=== PATIENT | female | born 1955 | race Caucasian/White ===

== ENCOUNTER 2018-01-23 07:50 | Outpatient (CLI) | payer BC, OTHER ==
[2018-01-23 08:31] LABS: BASOPHILS # (AUTO) 0.1 X10'3 (0-0.2); BASOPHILS % (AUTO) 1.1 % (0-1); EOSINOPHILS # (AUTO) 0.7 X10'3 (0-0.9); EOSINOPHILS % (AUTO) 5.4 % (0-6); HEMATOCRIT 41.7 % (35.0-45.0); HEMOGLOBIN 14.2 g/dl (12.0-16.0); LYMPHOCYTES # (AUTO) 1.9 X10'3 (1.1-4.8); LYMPHOCYTES % (AUTO) 14.2 % (21-51); MEAN CORPUSCULAR HEMOGLOBIN 31.6 PG (27.0-31.0); MEAN CORPUSCULAR VOLUME 92.9 FL (78-98); MEAN PLATELET VOLUME 7.9 FL (7.4-10.4); MONOCYTES # (AUTO) 0.6 X10'3 (0-0.9); MONOCYTES % (AUTO) 4.3 % (2-12); NEUTROPHILS # (AUTO) 9.8 X10'3 (1.8-7.7); PLATELET COUNT 387 X10'3 (140-440); RED BLOOD COUNT 4.49 X10'6 (4.20-5.60); RED CELL DISTRIBUTION WIDTH 13.7 % (11.5-14.5); WHITE BLOOD COUNT 13.1 X10'3 (4.5-11.0)
[2018-01-23 08:40] LABS: CLARITY,URINE SLIGHTLY CLOUDY (Clear); COLOR,URINE YELLOW (Yellow); GLUCOSE, URINE NEGATIVE (Neg); KETONES,URINE NEGATIVE (Neg); LEUKOCYTE ESTERASE ,URINE SMALL (Neg); NITRITES, URINE POSITIVE (Neg); OCCULT BLOOD,URINE TRACE-LYSED (Neg); PROTEIN,URINE NEGATIVE (Neg); UROBILINOGEN,URINE 0.2 E.U/dL (0.2-1.0)
[2018-01-23 08:46] LABS: UA COLLECTION TYPE CLN CATCH MIDSTREAM
[2018-01-23 08:48] LABS: BACTERIA,URINE 3+ /HPF (Neg); MUCUS STRANDS FEW /LPF (Neg); RBC,URINE 0-2 /HPF (0-2); SQUAMOUS EPITHELIAL CELL,UR FEW /LPF (FEW); TRANSITIONAL EPI CELLS,URINE FEW /HPF
[2018-01-23 09:01] LABS: ALANINE AMINOTRANSFERASE 93 U/L (12-78); ALBUMIN 3.5 G/DL (3.4-5.0); ALBUMIN/GLOBULIN RATIO 0.8 (1.1-1.5); ALKALINE PHOSPHATASE 243 IU/L (46-116); ANION GAP 6 (8-16); ASPARTATE AMINO TRANSFERASE 47 U/L (10-37); BILIRUBIN,TOTAL 0.5 MG/DL (0.1-1.0); BLOOD UREA NITROGEN 16 MG/DL (7-18); BUN/CREATININE RATIO 17.4 (6.6-38.0); CALCIUM 9.1 MG/DL (8.5-10.1); CHLORIDE 104 MMOL/L (99-107); CHOL/HDL RATIO 3.8 (0.00-4.99); CHOLESTEROL 255 MG/DL (0-200); CREATININE 0.92 MG/DL (0.40-0.90); GLUCOSE 92 MG/DL (70-104); HDL CHOLESTEROL 67 MG/DL (35-60); LDL CHOLESTEROL 170 MG/DL (50-100); POTASSIUM 4.4 MMOL/L (3.5-5.1); SODIUM 140 MMOL/L (135-145); TOTAL CARBON DIOXIDE 30.1 MMOL/L (24-32); TOTAL PROTEIN 7.7 G/DL (6.4-8.2); TRIGLYCERIDES 68 MG/DL (20-135); eGFR 61 ML/MIN
== END 2018-01-23 23:59 | disposition home or self-care (01) ==
LOC: CARD DIAG 07:50
PROVIDERS: ATTEND Family Medicine
DX: I08.3 Combined rheumatic disorders of mitral, aortic and tricuspid valves (principal); R91.8 Other nonspecific abnormal finding of lung field; I48.91 Unspecified atrial fibrillation; R53.83 Other fatigue; R00.1 Bradycardia, unspecified
CPT/HCPCS: 36415; 71046; 80053; 80061; 81001; 84439; 84443; 85025; 93306

== ENCOUNTER 2018-02-19 08:05 | Outpatient (CLI) | payer BC ==
[~2018-02-19] VITALS: Ht 170.2 cm; Wt 56.0 kg
[2018-02-19] VITALS (7 sets, daily range): BP systolic 114–136; BP diastolic 60–73
[2018-02-19] MEDS ORDERED: ASPI-611 PO (08:51)
[2018-02-19] MEDS ORDERED: regadenoson 0.4mg/5ml syringe IV ONE ×2 (08:55→09:47)
[2018-02-19] MEDS ORDERED: CAFFEINE CITRATE 60 MG/3 ML injection vial IV ONE ×2 (08:55→09:47)
[2018-02-19] MEDS ORDERED: metoprolol tartrate 1mg/ml inj IV PRN (08:55)
[2018-02-19] MEDS ORDERED: nitroGLYCERIN 0.4mg SUBLingual tab SL PRN (08:55)
[2018-02-19] MEDS ORDERED: normal saline 500ml IV soln 500 ML IV ONE (08:55)
== END 2018-02-19 23:59 | disposition home or self-care (01) ==
LOC: RAD 08:05
PROVIDERS: ATTEND Internal Medicine Interventional Cardiology
DX: I48.91 Unspecified atrial fibrillation (principal)
CPT/HCPCS: 78452; 93017; A9500

== ENCOUNTER 2018-10-24 08:48 | Outpatient (CLI) | payer BC ==
[~2018-10-24] VITALS: Ht 170.2 cm; Wt 56.7 kg
[~2018-10-24 08:48] MED LIST: ASPI-611 PO
[2018-10-24] MEDS ORDERED: albuterol 2.5 MG/3 ML nebule ONE (09:27)
[2018-10-24] MEDS ORDERED: albuterol 2.5 MG/3 ML nebule NEB ONE (09:40)
== END 2018-10-24 23:59 | disposition home or self-care (01) ==
LOC: RT 08:48
PROVIDERS: ATTEND Family Medicine
DX: R06.02 Shortness of breath (principal); R94.2 Abnormal results of pulmonary function studies
CPT/HCPCS: 94060; 94727; 94729; 94760

== ENCOUNTER 2019-08-07 07:08 | Outpatient (CLI) | payer OTHER, MEDICARE ==
[~2019-08-07] VITALS: Ht 170.2 cm; Wt 53.5 kg
[2019-08-07 07:46] LABS: TOTAL HEMOGLOBIN 13.9 G/dl (12.0-16.0)
[2019-08-07] MEDS ORDERED: albuterol 2.5 MG/3 ML nebule NEB ONE (08:10)
== END 2019-08-07 23:59 | disposition home or self-care (01) ==
LOC: RT 07:08
PROVIDERS: ATTEND Physician Assistant
DX: J84.89 Other specified interstitial pulmonary diseases (principal)
CPT/HCPCS: 85018; 94060; 94727; 94729; 94760

== ENCOUNTER 2020-02-11 08:54 | Outpatient (CLI) | payer BC, MEDICARE ==
[2020-02-11 09:32] LABS: BASOPHILS # (AUTO) 0.1 X10'3 (0-0.2); BASOPHILS % (AUTO) 1.1 % (0-1); EOSINOPHILS # (AUTO) 0.8 X10'3 (0-0.9); EOSINOPHILS % (AUTO) 6.4 % (0-6); HEMATOCRIT 43.4 % (35.0-45.0); HEMOGLOBIN 14.5 g/dl (12.0-16.0); LYMPHOCYTES # (AUTO) 2.3 X10'3 (1.1-4.8); LYMPHOCYTES % (AUTO) 17.8 % (21-51); MEAN CORPUSCULAR HEMOGLOBIN 31.5 PG (27.0-31.0); MEAN CORPUSCULAR HGB CONC 33.5 g/dL (33.0-36.5); MEAN CORPUSCULAR VOLUME 94.2 FL (78-98); MEAN PLATELET VOLUME 7.7 FL (7.4-10.4); MONOCYTES # (AUTO) 0.8 X10'3 (0-0.9); MONOCYTES % (AUTO) 6.2 % (2-12); NEUTROPHILS # (AUTO) 8.8 X10'3 (1.8-7.7); NEUTROPHILS % (AUTO) 68.5 % (42-75); PLATELET COUNT 414 X10'3 (140-440); RED CELL DISTRIBUTION WIDTH 13.1 % (11.5-14.5); WHITE BLOOD COUNT 12.9 X10'3 (4.5-11.0)
[2020-02-11 09:32] LABS: CLARITY,URINE CLEAR (Clear); COLOR,URINE YELLOW (Yellow); GLUCOSE, URINE NEGATIVE (Neg); KETONES,URINE NEGATIVE (Neg); LEUKOCYTE ESTERASE ,URINE NEGATIVE (Neg); NITRITES, URINE NEGATIVE (Neg); OCCULT BLOOD,URINE TRACE-INTACT (Neg); PH,URINE 5.5 (4.8-8.0); PROTEIN,URINE NEGATIVE (Neg); UROBILINOGEN,URINE 0.2 E.U/dL (0.2-1.0)
[2020-02-11 09:44] LABS: UA COLLECTION TYPE CLN CATCH MIDSTREAM
[2020-02-11 09:51] LABS: CELLULAR CAST 0-4 /LPF (NEGATIVE); MUCUS STRANDS MODERATE /LPF (Neg); SQUAMOUS EPITHELIAL CELL,UR FEW /LPF (FEW)
[2020-02-11 09:52] LABS: BACTERIA,URINE FEW /HPF (Neg); COARSE GRANULAR CAST 0-3 /LPF (NEGATIVE); RBC,URINE 0-2 /HPF (0-2); WBC,URINE 0-4 /HPF (0-4)
[2020-02-11 09:53] LABS: TRANSITIONAL EPI CELLS,URINE FEW /HPF
[2020-02-11 09:59] LABS: ALANINE AMINOTRANSFERASE 29 U/L (12-78); ALBUMIN 3.8 G/DL (3.4-5.0); ALBUMIN/GLOBULIN RATIO 0.8 (1.1-1.5); ALKALINE PHOSPHATASE 154 IU/L (46-116); ANION GAP 6 (8-16); ASPARTATE AMINO TRANSFERASE 29 U/L (10-37); BILIRUBIN,TOTAL 0.4 MG/DL (0.1-1.0); BLOOD UREA NITROGEN 18 MG/DL (7-18); CALCIUM 9.3 MG/DL (8.5-10.1); CHLORIDE 102 MMOL/L (99-107); CHOL/HDL RATIO 4.2 (0.00-4.99); CHOLESTEROL 280 MG/DL (0-200); CREATININE 0.82 MG/DL (0.40-0.90); GLUCOSE 91 MG/DL (70-104); HDL CHOLESTEROL 67 MG/DL (35-60); LDL CHOLESTEROL 196 MG/DL (50-100); SODIUM 139 MMOL/L (135-145); TOTAL CARBON DIOXIDE 31.1 MMOL/L (24-32); TOTAL PROTEIN 8.5 G/DL (6.4-8.2); TRIGLYCERIDES 76 MG/DL (20-135); eGFR 70 ML/MIN
== END 2020-02-11 23:59 | disposition home or self-care (01) ==
LOC: LAB 08:54
PROVIDERS: ATTEND Family Medicine
DX: Z00.00 Encounter for general adult medical examination without abnormal findings (principal)
CPT/HCPCS: 36415; 80053; 80061; 81001; 84439; 84443; 85025

== ENCOUNTER 2020-03-09 08:01 | Outpatient (CLI) | payer BC, MEDICARE ==
[~2020-03-09] VITALS: Ht 165.1 cm; Wt 53.0 kg
[2020-03-09] VITALS (7 sets, daily range): BP systolic 118–141; BP diastolic 64–85
[2020-03-09] MEDS ORDERED: regadenoson 0.4mg/5ml syringe IV ONE (09:10)
[2020-03-09] MEDS ORDERED: metoprolol tartrate 1mg/ml inj IV PRN (09:10)
[2020-03-09] MEDS ORDERED: aminophylline 250mg/10ml inj. IV PRN (09:10)
[2020-03-09] MEDS ORDERED: nitroGLYCERIN 0.4mg SUBLingual tab SL PRN (09:10)
== END 2020-03-09 23:59 | disposition home or self-care (01) ==
LOC: RAD 08:01
PROVIDERS: ATTEND Internal Medicine Interventional Cardiology
DX: I08.3 Combined rheumatic disorders of mitral, aortic and tricuspid valves (principal); I48.0 Paroxysmal atrial fibrillation
CPT/HCPCS: 78452; 93017; 93306; A9500; J0280; J2785

== ENCOUNTER 2020-06-03 15:22 | Outpatient (CLI) | payer BC, MEDICARE ==
[2020-06-03 16:42] LABS: ALANINE AMINOTRANSFERASE 62 U/L (12-78); ALBUMIN 3.6 G/DL (3.4-5.0); ALBUMIN/GLOBULIN RATIO 0.7 (1.1-1.5); ASPARTATE AMINO TRANSFERASE 49 U/L (10-37); BILIRUBIN,DIRECT 0.1 MG/DL (0-0.3); BILIRUBIN,TOTAL 0.4 MG/DL (0.1-1.0); TOTAL PROTEIN 8.8 G/DL (6.4-8.2)
[2020-06-03 17:03] LABS: ALKALINE PHOSPHATASE 232 IU/L (46-116)
== END 2020-06-03 23:59 | disposition home or self-care (01) ==
LOC: RT 15:22
PROVIDERS: ATTEND Internal Medicine Critical Care Medicine
DX: J84.9 Interstitial pulmonary disease, unspecified (principal); Z79.899 Other long term (current) drug therapy
CPT/HCPCS: 36415; 80076

== ENCOUNTER 2020-07-06 06:07 | Outpatient (CLI) | payer BC, MEDICARE | END 2020-07-06 23:59 | disposition home or self-care (01) | LOC: RT 06:07 | PROVIDERS: ATTEND Internal Medicine | DX: J84.89 Other specified interstitial pulmonary diseases (principal) | CPT/HCPCS: 94618 ==

== ENCOUNTER 2020-07-15 07:02 | Outpatient (CLI) | payer BC, MEDICARE | END 2020-07-15 23:59 | disposition home or self-care (01) | LOC: RAD 07:02 | PROVIDERS: ATTEND Internal Medicine Rheumatology | DX: R74.8 Abnormal levels of other serum enzymes (principal) | CPT/HCPCS: 76700 ==

== ENCOUNTER 2020-07-23 12:34 | Outpatient (CLI) | payer BC, MEDICARE ==
[2020-07-23 13:06] LABS: BASOPHILS # (AUTO) 0.1 X10'3 (0-0.2); BASOPHILS % (AUTO) 0.8 % (0-1); EOSINOPHILS # (AUTO) 0.6 X10'3 (0-0.9); EOSINOPHILS % (AUTO) 3.9 % (0-6); HEMATOCRIT 42.1 % (35.0-45.0); LYMPHOCYTES # (AUTO) 2.4 X10'3 (1.1-4.8); LYMPHOCYTES % (AUTO) 16.2 % (21-51); MEAN CORPUSCULAR HEMOGLOBIN 31.8 PG (27.0-31.0); MEAN CORPUSCULAR HGB CONC 33.3 g/dL (33.0-36.5); MEAN CORPUSCULAR VOLUME 95.6 FL (78-98); MEAN PLATELET VOLUME 8.1 FL (7.4-10.4); MONOCYTES # (AUTO) 0.8 X10'3 (0-0.9); MONOCYTES % (AUTO) 5.8 % (2-12); NEUTROPHILS # (AUTO) 10.8 X10'3 (1.8-7.7); NEUTROPHILS % (AUTO) 73.3 % (42-75); PLATELET COUNT 409 X10'3 (140-440); RED BLOOD COUNT 4.41 X10'6 (4.20-5.60); RED CELL DISTRIBUTION WIDTH 13.5 % (11.5-14.5); WHITE BLOOD COUNT 14.7 X10'3 (4.5-11.0)
[2020-07-23 13:17] LABS: PARTIAL THROMBOPLASTIN TIME 26 SECONDS (22-32)
[2020-07-23 13:20] LABS: ALBUMIN 3.7 G/DL (3.4-5.0); ANION GAP 8 (8-16); BLOOD UREA NITROGEN 17 MG/DL (7-18); BUN/CREATININE RATIO 21.5 (6.6-38.0); CALCIUM 9.4 MG/DL (8.5-10.1); CHLORIDE 104 MMOL/L (99-107); CREATININE 0.79 MG/DL (0.40-0.90); GLUCOSE 95 MG/DL (70-104); POTASSIUM 4.3 MMOL/L (3.5-5.1); SODIUM 141 MMOL/L (135-145); eGFR 73 ML/MIN
== END 2020-07-23 23:59 | disposition home or self-care (01) ==
LOC: LAB 12:34
PROVIDERS: ATTEND Internal Medicine Interventional Cardiology
DX: I48.0 Paroxysmal atrial fibrillation (principal); R06.89 Other abnormalities of breathing
CPT/HCPCS: 36415; 80048; 85025; 85610; 85730

== ENCOUNTER 2020-07-28 12:11 | Day surgery (SDC) | payer MEDICARE ==
[~2020-07-28] VITALS: Ht 167.6 cm; Wt 49.9 kg
[2020-07-28] VITALS (7 sets, daily range): BP systolic 97–135; BP diastolic 59–83
[2020-07-28] MEDS ORDERED: LIDOcaine/PRILOcaine 5gm cream TP ONE (12:40)
[2020-07-28] MEDS ORDERED: LORazepam 0.5 MG tablet PO PRN (12:45)
[2020-07-28] MEDS ORDERED: diphenhydrAMINE 25mg capsule PO PRN (12:45)
[2020-07-28] MEDS ORDERED: normal saline 1,000 ML IV SCH (12:45)
[2020-07-28] MEDS ORDERED: METO-395 PO (12:46)
[2020-07-28] MEDS ORDERED: ALEN70TA80 PO (12:46)
[2020-07-28] MEDS ORDERED: FLEC50TA3 PO (12:46)
[2020-07-28] MEDS ORDERED: ALBU2.5V10 INH (12:46)
[2020-07-28] MEDS ORDERED: midazolam 1 mg/ML 2ml injection ONE (13:30)
[2020-07-28] MEDS ORDERED: iohexol 350MG/ML 100ml bottle IV ONE (13:30)
[2020-07-28] MEDS ORDERED: heparin 1,000 UNITS/NS 500ml 500 ML ONE ×2 (13:30)
[2020-07-28] MEDS ORDERED: fentaNYL/PF 50MCG/1 ML 2ML syringe ONE (13:30)
[2020-07-28] MEDS ORDERED: LIDOcaine 1% (10mg/ml)w/preservative injection 20ml MDV ONE (13:30)
[2020-07-28] MEDS ORDERED: nitroGLYCERIN 0.4mg SUBLingual tab SL PRN (15:15)
[2020-07-28] MEDS ORDERED: OXAZEpam 15mg capsule PO PRN (15:15)
[2020-07-28] MEDS ORDERED: proCHLORperazine 10 MG/2 ml inj IV PRN (15:15)
[2020-07-28] MEDS ORDERED: ondansetron/PF 4mg/2ml inj IV PRN (15:15)
== END 2020-07-28 16:30 | disposition home or self-care (01) ==
LOC: SSTAY O 12:11
PROVIDERS: ATTEND Internal Medicine Interventional Cardiology
DX: I27.23 Pulmonary hypertension due to lung diseases and hypoxia (principal); I48.91 Unspecified atrial fibrillation; E78.5 Hyperlipidemia, unspecified; Z79.899 Other long term (current) drug therapy; Z79.82 Long term (current) use of aspirin
CPT/HCPCS: 93005; 93451; 99152; 99153; J1644; J2001; J2250; J3010; Q9967; C1751

== ENCOUNTER 2020-08-05 07:02 | Outpatient (CLI) | payer BC, MEDICARE ==
[~2020-08-05] VITALS: Ht 170.2 cm; Wt 49.9 kg
[~2020-08-05 07:02] MED LIST changes: +ALBU2.5V10 INH; +ALEN70TA80 PO; +FLEC50TA3 PO; +METO-395 PO
[2020-08-05] MEDS ORDERED: albuterol 2.5 MG/3 ML nebule NEB PRN (07:40)
== END 2020-08-05 23:59 | disposition home or self-care (01) ==
LOC: RT 07:02
PROVIDERS: ATTEND Internal Medicine Critical Care Medicine
DX: J84.89 Other specified interstitial pulmonary diseases (principal); R94.2 Abnormal results of pulmonary function studies
CPT/HCPCS: 94060; 94727; 94729; 94760

== ENCOUNTER 2020-09-04 10:32 | Outpatient (CLI) | payer MEDICARE ==
[2020-09-04 11:34] LABS: BASOPHILS % (AUTO) 0.3 % (0-1); EOSINOPHILS % (AUTO) 0.2 % (0-6); HEMATOCRIT 44.1 % (35.0-45.0); HEMOGLOBIN 14.4 g/dl (12.0-16.0); LYMPHOCYTES # (AUTO) 0.9 X10'3 (1.1-4.8); LYMPHOCYTES % (AUTO) 6.2 % (21-51); MEAN CORPUSCULAR HEMOGLOBIN 31.5 PG (27.0-31.0); MEAN CORPUSCULAR HGB CONC 32.7 g/dL (33.0-36.5); MEAN CORPUSCULAR VOLUME 96.5 FL (78-98); MEAN PLATELET VOLUME 7.8 FL (7.4-10.4); MONOCYTES # (AUTO) 0.2 X10'3 (0-0.9); MONOCYTES % (AUTO) 1.3 % (2-12); PLATELET COUNT 385 X10'3 (140-440); RED BLOOD COUNT 4.57 X10'6 (4.20-5.60); RED CELL DISTRIBUTION WIDTH 13.7 % (11.5-14.5); WHITE BLOOD COUNT 15.2 X10'3 (4.5-11.0)
[2020-09-04 11:54] LABS: ALANINE AMINOTRANSFERASE 35 U/L (12-78); ALBUMIN 3.5 G/DL (3.4-5.0); ALBUMIN/GLOBULIN RATIO 0.9 (1.1-1.5); ALKALINE PHOSPHATASE 126 IU/L (46-116); ASPARTATE AMINO TRANSFERASE 40 U/L (10-37); BILIRUBIN,DIRECT 0.2 MG/DL (0-0.3); BILIRUBIN,TOTAL 0.6 MG/DL (0.1-1.0); TOTAL PROTEIN 7.4 G/DL (6.4-8.2)
== END 2020-09-04 23:59 | disposition home or self-care (01) ==
LOC: LAB 10:32
PROVIDERS: ATTEND Internal Medicine
DX: Z79.899 Other long term (current) drug therapy (principal)
CPT/HCPCS: 36415; 80076; 85025

== ENCOUNTER → 2020-10-05 | Outpatient (CLI) | payer MEDICARE ==
[2020-10-05 11:09] LABS: HEMATOCRIT 44.4 % (35.0-45.0); HEMOGLOBIN 14.6 g/dl (12.0-16.0); MEAN CORPUSCULAR HEMOGLOBIN 32.6 PG (27.0-31.0); MEAN PLATELET VOLUME 7.9 FL (7.4-10.4); PLATELET COUNT 400 X10'3 (140-440); RED BLOOD COUNT 4.49 X10'6 (4.20-5.60); RED CELL DISTRIBUTION WIDTH 14.7 % (11.5-14.5); WHITE BLOOD COUNT 15.9 X10'3 (4.5-11.0)
[2020-10-05 11:26] LABS: ALANINE AMINOTRANSFERASE 47 U/L (12-78); ALBUMIN 3.4 G/DL (3.4-5.0); ALBUMIN/GLOBULIN RATIO 0.9 (1.1-1.5); ALKALINE PHOSPHATASE 175 IU/L (46-116); ASPARTATE AMINO TRANSFERASE 95 U/L (10-37); BILIRUBIN,DIRECT 0.3 MG/DL (0-0.3); BILIRUBIN,TOTAL 0.7 MG/DL (0.1-1.0); TOTAL PROTEIN 7.3 G/DL (6.4-8.2)
== END | disposition home or self-care (01) ==
LOC: LAB 10:14
PROVIDERS: ATTEND Internal Medicine
DX: Z79.899 Other long term (current) drug therapy (principal)
CPT/HCPCS: 36415; 80076; 85027

== ENCOUNTER 2020-10-20 08:41 | Outpatient (CLI) | payer MEDICARE | END 2020-10-20 23:59 | disposition home or self-care (01) | LOC: RAD 08:41 | PROVIDERS: ATTEND Anesthesiology Pain Medicine | DX: M51.36 Other intervertebral disc degeneration, lumbar region (principal); M48.07 Spinal stenosis, lumbosacral region; M43.16 Spondylolisthesis, lumbar region | CPT/HCPCS: 72148 ==

== ENCOUNTER 2020-11-17 08:16 | Emergency (ER) | payer MEDICARE ==
[~2020-11-17] VITALS: Ht 165.1 cm; Wt 50.0 kg
[2020-11-17 08:19] VITALS: BP 136/72
--- NOTE | 2020-11-17 10:40 | NUR ---
PT HAS RETURNED FROM ULTRASOUND
[2020-11-17] MEDS ORDERED: SULF1TAB49 PO (11:53)
== END 2020-11-17 12:02 | disposition home or self-care (01) ==
LOC: ER 08:17
DX: J18.9 Pneumonia, unspecified organism (principal); J84.10 Pulmonary fibrosis, unspecified; R09.02 Hypoxemia
CPT/HCPCS: 71046; 93306; 99283

== ENCOUNTER 2020-11-20 09:57 | Outpatient (CLI) | payer MEDICARE ==
[~2020-11-20 09:57] MED LIST changes: +SULF1TAB49 PO
[2020-11-20] MEDS ORDERED: iohexol 350MG/ML 100ml bottle IV ONE (13:18)
== END 2020-11-20 23:59 | disposition home or self-care (01) ==
LOC: 64 CT 09:57
PROVIDERS: ATTEND Internal Medicine Pulmonary Disease
DX: J84.112 Idiopathic pulmonary fibrosis (principal); J47.9 Bronchiectasis, uncomplicated; J98.4 Other disorders of lung
CPT/HCPCS: 71275; Q9967

== ENCOUNTER 2021-01-07 10:45 | Day surgery (SDC) | payer MEDICARE ==
[~2021-01-07] VITALS: Ht 165.1 cm; Wt 49.5 kg
[~2021-01-07 10:45] MED LIST changes: -SULF1TAB49 PO
[2021-01-07] MEDS ORDERED: MIDAZolam 1 MG/ML 5ML VIAL ONE (11:05)
[2021-01-07] MEDS ORDERED: fentaNYL/PF 50MCG/1 ML 2ML syringe ONE (11:05)
[2021-01-07 11:15] VITALS: BP 112/48
[2021-01-07] MEDS ORDERED: NINT150C (11:30)
[2021-01-07] MEDS ORDERED: MYCO500T PO (11:31)
[2021-01-07] MEDS ORDERED: LACT1CAP65 PO (11:32)
[2021-01-07] MEDS ORDERED: CARB1TAB23 PO (11:33)
[2021-01-07] MEDS ORDERED: PRED5TAB49 PO (11:33)
[2021-01-07] MEDS ORDERED: SULF1TAB49 PO (11:34)
[2021-01-07] MEDS ORDERED: CHOL20004 PO (11:35)
[2021-01-07] MEDS ORDERED: MELA2.5T PO (11:36)
[2021-01-07] MEDS ORDERED: OMEG1CAP13 PO (11:36)
[2021-01-07] MEDS ORDERED: DIPH25CA83 PO (11:37)
[2021-01-07 13:10] VITALS: BP 105/66
[2021-01-07 13:20] VITALS: BP 98/51
[2021-01-07 13:30] VITALS: BP 98/59
[2021-01-07 13:40] VITALS: BP 110/70
== END 2021-01-07 14:05 | disposition home or self-care (01) ==
LOC: GI LAB 10:45
PROVIDERS: ATTEND Internal Medicine Gastroenterology
DX: Z12.11 Encounter for screening for malignant neoplasm of colon (principal); K63.89 Other specified diseases of intestine; K64.8 Other hemorrhoids; I48.91 Unspecified atrial fibrillation; Z79.899 Other long term (current) drug therapy
CPT/HCPCS: G0121; G0500; J2250; J3010; J7040; Z7512; 45378; 99152; A4620

== ENCOUNTER → 2021-03-06 | Outpatient (CLI) | payer MEDICARE ==
[~2021-03-06] MED LIST changes: -ALBU2.5V10 INH; -ASPI-611 PO; +CARB1TAB23 PO; +CHOL20004 PO; +DIPH25CA83 PO; +LACT1CAP65 PO; +MELA2.5T PO; +MYCO500T PO; +NINT150C; +OMEG1CAP13 PO; +PRED5TAB49 PO; +SULF1TAB49 PO
== END | disposition home or self-care (01) ==
LOC: LAB 08:19
PROVIDERS: ATTEND Family Medicine
DX: Z01.818 Encounter for other preprocedural examination (principal); Z20.822 Contact with and (suspected) exposure to COVID-19
CPT/HCPCS: 36415; U0003

== ENCOUNTER 2021-03-15 08:50 | Outpatient (CLI) | payer MEDICARE | END 2021-03-15 23:59 | disposition home or self-care (01) | LOC: PRE-OP 08:50 | PROVIDERS: ATTEND Family Medicine | DX: Z20.822 Contact with and (suspected) exposure to COVID-19 (principal) | CPT/HCPCS: 36415; U0003; U0005 ==

== ENCOUNTER 2021-04-05 09:04 | Emergency (ER) | payer MEDICARE ==
[~2021-04-05] VITALS: Ht 165.1 cm; Wt 49.1 kg
[~2021-04-05 09:04] MED LIST changes: -NINT150C; +NINT150C PO
[2021-04-05] MEDS ORDERED: metoprolol tartrate 1mg/ml inj IV ONE ×2 (10:00)
[2021-04-05 10:19] LABS: BASOPHILS # (AUTO) 0.1 X10'3 (0-0.2); BASOPHILS % (AUTO) 0.3 % (0-1); EOSINOPHILS # (AUTO) 0.1 X10'3 (0-0.9); EOSINOPHILS % (AUTO) 0.3 % (0-6); HEMOGLOBIN 13.1 g/dl (12.0-16.0); LYMPHOCYTES # (AUTO) 0.7 X10'3 (1.1-4.8); LYMPHOCYTES % (AUTO) 3.6 % (21-51); MEAN CORPUSCULAR HEMOGLOBIN 31.9 PG (27.0-31.0); MEAN CORPUSCULAR HGB CONC 32.7 g/dL (33.0-36.5); MEAN CORPUSCULAR VOLUME 97.6 FL (78-98); MONOCYTES # (AUTO) 0.5 X10'3 (0-0.9); MONOCYTES % (AUTO) 2.5 % (2-12); NEUTROPHILS # (AUTO) 18.4 X10'3 (1.8-7.7); NEUTROPHILS % (AUTO) 93.3 % (42-75); PLATELET COUNT 551 X10'3 (140-440); RED CELL DISTRIBUTION WIDTH 14.1 % (11.5-14.5); WHITE BLOOD COUNT 19.7 X10'3 (4.5-11.0)
[2021-04-05 10:23] LABS: PARTIAL THROMBOPLASTIN TIME 25 SECONDS (22-32)
[2021-04-05 10:26] LABS: ALANINE AMINOTRANSFERASE 11 U/L (12-78); ALBUMIN 3.7 G/DL (3.4-5.0); ALBUMIN/GLOBULIN RATIO 0.9 (1.1-1.5); ALKALINE PHOSPHATASE 173 IU/L (46-116); ANION GAP 9 (8-16); ASPARTATE AMINO TRANSFERASE 30 U/L (10-37); BILIRUBIN,TOTAL 0.8 MG/DL (0.1-1.0); BLOOD UREA NITROGEN 21 MG/DL (7-18); BUN/CREATININE RATIO 21.4 (6.6-38.0); CHLORIDE 99 MMOL/L (99-107); CREATININE 0.98 MG/DL (0.40-0.90); GLUCOSE 120 MG/DL (70-104); POTASSIUM 4.8 MMOL/L (3.5-5.1); SODIUM 140 MMOL/L (135-145); TOTAL PROTEIN 7.6 G/DL (6.4-8.2); eGFR 57 ML/MIN
[2021-04-05] MEDS ORDERED: ringers solution, lacted 1,000 ML IV ONE (10:35)
[2021-04-05 10:36] LABS: MAGNESIUM 2.4 MG/DL (1.5-2.4)
[2021-04-05 11:06] LABS: D-DIMER 0.74 MG/L FEU (0-0.50)
--- NOTE | 2021-04-05 11:52 | NUR ---
Dr. Colunga at bedside, aware of VS. MD to contact cardiology
[2021-04-05] MEDS ORDERED: magnesium 2GM in 50ml NS 50 ML IV ONE (12:20)
[2021-04-05] MEDS ORDERED: propofol 10mg/ml 20ml vial IV ONE (12:35)
[2021-04-05] MEDS ORDERED: MYCO500T5 PO (12:36)
[2021-04-05] MEDS ORDERED: PRED20TA PO (12:36)
[2021-04-05] MEDS ORDERED: SULF-14 PO (12:36)
--- NOTE | 2021-04-05 13:13 | NUR ---
CARDIOVERSION HAS BEEN PERFORMED, PT TOLERATED WELL, IS NOW IN NSR, EKG OBTAINED. PT AWAKE, FEELS MUCH BETTER.
--- NOTE | 2021-04-05 15:36 | NUR ---
DR GARRETT IN TO SEE PT, PT DOES NOT WANT TO BE ADMITTED, ED DOC AWARE
[2021-04-05] MEDS ORDERED: RYT225T CORPAK (15:48)
[2021-04-05 17:20] VITALS: BP 110/60
== END 2021-04-05 17:22 | disposition home or self-care (01) ==
LOC: ER 09:04
DX: I48.91 Unspecified atrial fibrillation (principal); R04.0 Epistaxis; Z79.899 Other long term (current) drug therapy
CPT/HCPCS: 36415; 71045; 80053; 83735; 83880; 84443; 84484; 85025; 85379; 85610; 85730; 92960; 93005; 93308; 96361; 96365; 96366; 96375; 99285; J2704; J3475; J3490; J7120

== ENCOUNTER 2021-04-07 15:27 | Inpatient (IN) | payer MEDICARE ==
[~2021-04-07] VITALS: Ht 165.1 cm; Wt 51.9 kg
[~2021-04-07 15:27] MED LIST changes: -CHOL20004 PO; -DIPH25CA83 PO; -LACT1CAP65 PO; -MELA2.5T PO; -MYCO500T PO; +MYCO500T5 PO; -OMEG1CAP13 PO; +PRED20TA PO; -PRED5TAB49 PO; +RYT225T CORPAK; +SULF-14 PO; -SULF1TAB49 PO
[2021-04-07 16:28] LABS: HEMOGLOBIN 10.9 g/dl (12.0-16.0); MEAN PLATELET VOLUME 8.4 FL (7.4-10.4)
[2021-04-07 16:30] LABS: BASOPHILS % (AUTO) 0.3 % (0-1); EOSINOPHILS % (AUTO) 0.1 % (0-6); HEMATOCRIT 32.9 % (35.0-45.0); LYMPHOCYTES % (AUTO) 6.2 % (21-51); MEAN CORPUSCULAR HEMOGLOBIN 32.1 PG (27.0-31.0); MEAN CORPUSCULAR HGB CONC 33.1 g/dL (33.0-36.5); MEAN CORPUSCULAR VOLUME 96.8 FL (78-98); MONOCYTES # (AUTO) 0.5 X10'3 (0-0.9); MONOCYTES % (AUTO) 2.9 % (2-12); NEUTROPHILS # (AUTO) 14.8 X10'3 (1.8-7.7); NEUTROPHILS % (AUTO) 90.5 % (42-75); PLATELET COUNT 480 X10'3 (140-440); WHITE BLOOD COUNT 16.3 X10'3 (4.5-11.0)
[2021-04-07 16:40] LABS: ALANINE AMINOTRANSFERASE 12 U/L (12-78); ALBUMIN 3.1 G/DL (3.4-5.0); ALBUMIN/GLOBULIN RATIO 0.9 (1.1-1.5); ALKALINE PHOSPHATASE 137 IU/L (46-116); ANION GAP 8 (8-16); ASPARTATE AMINO TRANSFERASE 23 U/L (10-37); BILIRUBIN,TOTAL 0.3 MG/DL (0.1-1.0); BLOOD UREA NITROGEN 16 MG/DL (7-18); BUN/CREATININE RATIO 22.9 (6.6-38.0); CALCIUM 8.6 MG/DL (8.5-10.1); CHLORIDE 101 MMOL/L (99-107); GLUCOSE 167 MG/DL (70-104); POTASSIUM 4.6 MMOL/L (3.5-5.1); SODIUM 137 MMOL/L (135-145); TOTAL CARBON DIOXIDE 27.9 MMOL/L (24-32); TOTAL PROTEIN 6.5 G/DL (6.4-8.2); eGFR 83 ML/MIN
[2021-04-07] MEDS ORDERED: diltiazem 5mg/ml 5ml inj. IV ONE (17:00)
[2021-04-07 17:02] LABS: PLATELET ESTIMATE INCREASED; TOTAL CELLS COUNTED 100
[2021-04-07] MEDS ORDERED: normal saline 1000ML IV soln IVB ONE ×2 (17:15→20:50)
[2021-04-07] MEDS ORDERED: metoprolol tartrate 1mg/ml inj IV ONE ×2 (17:40→20:50)
[2021-04-07] MEDS ORDERED: diltiazem-NS 100mg/100ml 100 ML IV SCH (17:40)
--- NOTE | 2021-04-07 18:22 | NUR ---
Started the Diltiazem gtt.
[2021-04-07] MEDS ORDERED: amiodarone 150mg/dext, iso-os 100 ML IV ONE (19:35)
[2021-04-07] MEDS: amiodarone/D5 360MG/200ML BAG 200 ML IV SCH (21:36)
[2021-04-07] MEDS ORDERED: potassium Cl 40MEQ/1/2NS 520ml 520 ML IV PRN ×2 (23:20)
[2021-04-07] MEDS ORDERED: magnesium 4gm in 100ml NS 100 ML IV PRN (23:20)
[2021-04-07] MEDS ORDERED: potassium Cl 20 mEq SR tablet PO PRN ×2 (23:20)
[2021-04-07] MEDS ORDERED: ipratropium/albuterol 3ml nebule NEB PRN ×2 (23:20)
[2021-04-07] MEDS ORDERED: magnesium Cl slow-release 64mg tablet PO PRN (23:20)
[2021-04-07] MEDS ORDERED: acetaminophen 325mg tablet PO PRN (23:20)
[2021-04-07] MEDS ORDERED: ondansetron/PF 4mg/2ml inj IV PRN (23:20)
[2021-04-07] MEDS ORDERED: magnesium 2GM in 50ml NS 50 ML IV PRN (23:20)
[2021-04-08] MEDS: amiodarone/D5 360MG/200ML BAG 200 ML IV SCH ×2 (02:50→09:22)
[2021-04-08 02:58] VITALS: BP 118/70
[2021-04-08 05:12] LABS: BASOPHILS # (AUTO) 0.1 X10'3 (0-0.2); BASOPHILS % (AUTO) 0.8 % (0-1); EOSINOPHILS # (AUTO) 0.2 X10'3 (0-0.9); EOSINOPHILS % (AUTO) 1.4 % (0-6); HEMATOCRIT 28.7 % (35.0-45.0); HEMOGLOBIN 9.4 g/dl (12.0-16.0); LYMPHOCYTES # (AUTO) 1.3 X10'3 (1.1-4.8); LYMPHOCYTES % (AUTO) 10.2 % (21-51); MEAN CORPUSCULAR HEMOGLOBIN 31.7 PG (27.0-31.0); MEAN CORPUSCULAR HGB CONC 32.8 g/dL (33.0-36.5); MEAN CORPUSCULAR VOLUME 96.5 FL (78-98); MEAN PLATELET VOLUME 8.4 FL (7.4-10.4); MONOCYTES # (AUTO) 0.6 X10'3 (0-0.9); NEUTROPHILS # (AUTO) 10.5 X10'3 (1.8-7.7); NEUTROPHILS % (AUTO) 82.6 % (42-75); PLATELET COUNT 343 X10'3 (140-440); RED BLOOD COUNT 2.98 X10'6 (4.20-5.60); RED CELL DISTRIBUTION WIDTH 13.9 % (11.5-14.5); WHITE BLOOD COUNT 12.7 X10'3 (4.5-11.0)
[2021-04-08 05:28] LABS: ALBUMIN 2.6 G/DL (3.4-5.0); ANION GAP 5 (8-16); BLOOD UREA NITROGEN 12 MG/DL (7-18); BUN/CREATININE RATIO 19.7 (6.6-38.0); CHLORIDE 104 MMOL/L (99-107); CREATININE 0.61 MG/DL (0.40-0.90); GLUCOSE 101 MG/DL (70-104); MAGNESIUM 2.2 MG/DL (1.5-2.4); POTASSIUM 3.8 MMOL/L (3.5-5.1); SODIUM 139 MMOL/L (135-145); TOTAL CARBON DIOXIDE 29.8 MMOL/L (24-32); eGFR > 90 ML/MIN
--- NOTE | 2021-04-08 06:27 | NUR ---
Patient in room PCU 3021. I have received report from FELISHA Mcconnell and had the opportunity to ask questions and assume patient care.
[2021-04-08 07:00] VITALS: BP 100/57
[2021-04-08] MEDS ORDERED: RYT225T PO (07:11)
--- NOTE | 2021-04-08 07:35 | NUR ---
Paged Respiratory Re Nai Yeboah [id number] Urgent Pt desating into 70's/80's, requiring more 02, please come assist with proper equipment. Thank you [phone]
[2021-04-08] MEDS: K and/or MAG REPLACEMENT MC SCH ×2 (08:00→20:00)
[2021-04-08] MEDS: heparin, porcine 5000 units/ml vial SQ SCH ×2 (09:17→21:02)
[2021-04-08 11:00] VITALS: BP 99/75
[2021-04-08] MEDS ORDERED: non-formulary drug (Alendronate Sodium 1 TAB) PO SCH (12:05)
[2021-04-08] MEDS: carbidoba-levodopa 25-100mg tablet PO SCH ×2 (13:00→20:55)
--- NOTE | 2021-04-08 14:21 | NUR ---
Paged Dr Burnham PAGER ID: [phone] MESSAGE: Nai Chacko [phone] Can I order a PO Ativan for pts anxiety please? Thank you Ihryz [phone]
[2021-04-08 15:00] VITALS: BP 108/65
[2021-04-08] MEDS ORDERED: ondansetron 4mg rapidly disintigrating tab PO PRN (15:50)
[2021-04-08 18:00] VITALS: BP 116/63
--- NOTE | 2021-04-08 18:42 | NUR ---
Problems reprioritized. Patient report given, questions answered & plan of care reviewed with FELISHA Roberts. Pt sitting up in bed resting comfortably. No signs of distress noted at change of shift. All pt needs met at this time.
--- NOTE | 2021-04-08 18:45 | NUR ---
Patient in room PCU 3021. I have received report from FELISHA Falcon and had the opportunity to ask questions and assume patient care.
[2021-04-08] MEDS ORDERED: lactobacillus rhamnosus 10,000 MMU CELLS/CAPSULE PO SCH (20:00)
[2021-04-08] MEDS: lactose-reduced food (Ensure Enlive) - 237ml bottle PO SCH (20:00)
[2021-04-08] MEDS: flecainide 50mg tablet PO SCH ×2 (20:00→20:56)
[2021-04-08] MEDS: NINTEDANIB ESYLATE 150 MG PO SCH (20:00)
[2021-04-08] MEDS: ALPRAZolam 0.25mg tablet PO PRN (20:53)
[2021-04-08] MEDS: propafenone 150mg tablet PO SCH (20:55)
[2021-04-08] MEDS: mycophenolate mofetil 250mg capsule PO SCH (20:55)
[2021-04-08 22:00] VITALS: BP 143/73
[2021-04-09 02:00] VITALS: BP 95/67
[2021-04-09 06:00] VITALS: BP 122/75
--- NOTE | 2021-04-09 06:13 | NUR ---
Problems reprioritized. Patient report given, questions answered & plan of care reviewed with FELISHA Ashley.
--- NOTE | 2021-04-09 06:15 | NUR ---
Patient in room PCU 3021. I have received report from Alejandra BAEZA and had the opportunity to ask questions and assume patient care.
[2021-04-09] MEDS: mycophenolate mofetil 250mg capsule PO SCH ×2 (07:34→20:43)
[2021-04-09] MEDS: carbidoba-levodopa 25-100mg tablet PO SCH ×3 (07:34→20:43)
[2021-04-09] MEDS: metoprolol succinate 25mg (24-HOUR) SR. Tablet PO SCH (07:35)
[2021-04-09] MEDS: propafenone 150mg tablet PO SCH ×2 (07:35→20:44)
[2021-04-09] MEDS: predniSONE 20 mg tablet PO SCH (07:35)
[2021-04-09] MEDS: sulfamethoxazole/trimethoprim DS (800/160mg) tablet PO SCH (07:36)
[2021-04-09] MEDS: heparin, porcine 5000 units/ml vial SQ SCH ×2 (07:38→20:42)
[2021-04-09] MEDS: ALPRAZolam 0.25mg tablet PO PRN ×2 (07:43→20:43)
[2021-04-09] MEDS ORDERED: sulfamethoxazole/trimethoprim SS (400mg/80mg) tablet (single-strength) PO SCH (08:00)
[2021-04-09] MEDS: NINTEDANIB ESYLATE 150 MG PO SCH ×2 (08:00→20:00)
[2021-04-09] MEDS: K and/or MAG REPLACEMENT MC SCH ×2 (08:00→20:00)
[2021-04-09] MEDS: lactose-reduced food (Ensure Enlive) - 237ml bottle PO SCH ×2 (08:00→20:53)
[2021-04-09 08:45] LABS: HEMOGLOBIN 10.9 g/dl (12.0-16.0); MEAN PLATELET VOLUME 8.7 FL (7.4-10.4)
[2021-04-09 08:47] LABS: BASOPHILS % (AUTO) 0.3 % (0-1); EOSINOPHILS # (AUTO) 0.2 X10'3 (0-0.9); EOSINOPHILS % (AUTO) 1.6 % (0-6); HEMATOCRIT 33.2 % (35.0-45.0); LYMPHOCYTES # (AUTO) 0.8 X10'3 (1.1-4.8); LYMPHOCYTES % (AUTO) 6.9 % (21-51); MEAN CORPUSCULAR HEMOGLOBIN 31.9 PG (27.0-31.0); MEAN CORPUSCULAR HGB CONC 32.8 g/dL (33.0-36.5); MEAN CORPUSCULAR VOLUME 97.1 FL (78-98); MONOCYTES # (AUTO) 0.6 X10'3 (0-0.9); MONOCYTES % (AUTO) 5.2 % (2-12); NEUTROPHILS # (AUTO) 10.3 X10'3 (1.8-7.7); PLATELET COUNT 427 X10'3 (140-440); RED BLOOD COUNT 3.42 X10'6 (4.20-5.60); RED CELL DISTRIBUTION WIDTH 14.3 % (11.5-14.5)
[2021-04-09 09:02] LABS: ANION GAP 7 (8-16); BLOOD UREA NITROGEN 10 MG/DL (7-18); BUN/CREATININE RATIO 12.5 (6.6-38.0); CALCIUM 8.3 MG/DL (8.5-10.1); CHLORIDE 102 MMOL/L (99-107); GLUCOSE 85 MG/DL (70-104); MAGNESIUM 2.2 MG/DL (1.5-2.4); POTASSIUM 3.6 MMOL/L (3.5-5.1); SODIUM 141 MMOL/L (135-145); TOTAL CARBON DIOXIDE 32.1 MMOL/L (24-32); eGFR 72 ML/MIN
[2021-04-09 11:00] VITALS: BP 98/55
[2021-04-09 15:00] VITALS: BP 117/65
--- NOTE | 2021-04-09 15:38 | NUR ---
Malnutrition consult: Pt reports 2-13 lb wt loss with decreased appetite per malnutrition risk screen with RN. Per EMR pt with scaled wt h/o 49.895 kg taken 07/28/20 using a standing scale, first scaled wt this admit was 52.1 kg taken with a standing scale. No apparent wt loss. Pt currently on a heart healthy diet and eating fairly well with average 50-75% PO intake. Pt now receiving Ensure Enlive BID and with average 75% PO intake of ONS. Pt with no documented significant decrease in muscle strength or edema and appears well developed well nourished per ED report. Pt currently lacks a minimum of two criteria for malnutrition. Will continue to follow. Addendum: 04/09/21 at [address] Amended: Links added.
[2021-04-09 16:49] LABS: ABG BASE EXCESS 4.1 mmol/L (-2.0-2.0); ABG HCO3 29.3 mmol/L (22.0-26.0); ABG OXYGEN SATURATION 98.8 % (94-97); ABG PO2 (T) 141.5 mmHg (75.0-100.0); ALLEN'S TEST POSITIVE; FLOW 12 L/min; FMetHb 0.3 % (0.0-1.5); FO2Hb 98.5 % (94-97); PATIENT TEMPERATURE 36.7; TOTAL HEMOGLOBIN 11.8 G/dl (12.0-16.0)
--- NOTE | 2021-04-09 18:34 | NUR ---
Problems reprioritized. Patient report given, questions answered & plan of care reviewed with Alejandra BAEZA.
--- NOTE | 2021-04-09 18:35 | NUR ---
Patient in room PCU 3021. I have received report from FELISHA Ashley and had the opportunity to ask questions and assume patient care.
[2021-04-09 19:00] VITALS: BP 110/58
[2021-04-09] MEDS: lactobacillus rhamnosus 10,000 MMU CELLS/CAPSULE PO SCH (20:42)
[2021-04-09 23:00] VITALS: BP 112/69
[2021-04-10 03:00] VITALS: BP 110/70
--- NOTE | 2021-04-10 06:10 | NUR ---
Patient in room PCU 3021. I have received report from Alejandra BAEZA and had the opportunity to ask questions and assume patient care.
--- NOTE | 2021-04-10 06:11 | NUR ---
Problems reprioritized. Patient report given, questions answered & plan of care reviewed with FELISHA Ashley.
[2021-04-10 06:42] LABS: BASOPHILS # (AUTO) 0.1 X10'3 (0-0.2); BASOPHILS % (AUTO) 0.4 % (0-1); EOSINOPHILS # (AUTO) 0.2 X10'3 (0-0.9); EOSINOPHILS % (AUTO) 1.7 % (0-6); HEMATOCRIT 30.8 % (35.0-45.0); HEMOGLOBIN 10.4 g/dl (12.0-16.0); LYMPHOCYTES # (AUTO) 1.5 X10'3 (1.1-4.8); LYMPHOCYTES % (AUTO) 10.5 % (21-51); MEAN CORPUSCULAR HEMOGLOBIN 32.4 PG (27.0-31.0); MEAN CORPUSCULAR HGB CONC 33.6 g/dL (33.0-36.5); MEAN CORPUSCULAR VOLUME 96.4 FL (78-98); MEAN PLATELET VOLUME 8.5 FL (7.4-10.4); MONOCYTES # (AUTO) 0.8 X10'3 (0-0.9); MONOCYTES % (AUTO) 5.9 % (2-12); NEUTROPHILS # (AUTO) 11.3 X10'3 (1.8-7.7); NEUTROPHILS % (AUTO) 81.5 % (42-75); PLATELET COUNT 427 X10'3 (140-440); RED BLOOD COUNT 3.19 X10'6 (4.20-5.60); RED CELL DISTRIBUTION WIDTH 14.3 % (11.5-14.5); WHITE BLOOD COUNT 13.8 X10'3 (4.5-11.0)
[2021-04-10 06:51] LABS: ANION GAP 5 (8-16); BLOOD UREA NITROGEN 18 MG/DL (7-18); BUN/CREATININE RATIO 22.5 (6.6-38.0); CALCIUM 8.7 MG/DL (8.5-10.1); CHLORIDE 102 MMOL/L (99-107); GLUCOSE 92 MG/DL (70-104); MAGNESIUM 2.2 MG/DL (1.5-2.4); POTASSIUM 4.4 MMOL/L (3.5-5.1); SODIUM 140 MMOL/L (135-145); TOTAL CARBON DIOXIDE 32.9 MMOL/L (24-32); eGFR 72 ML/MIN
[2021-04-10 06:54] VITALS: BP 121/61
[2021-04-10] MEDS: NINTEDANIB ESYLATE 150 MG PO SCH (08:00)
[2021-04-10] MEDS: K and/or MAG REPLACEMENT MC SCH (08:00)
[2021-04-10] MEDS: metoprolol succinate 25mg (24-HOUR) SR. Tablet PO SCH (08:22)
[2021-04-10] MEDS: predniSONE 20 mg tablet PO SCH (08:22)
[2021-04-10] MEDS: propafenone 150mg tablet PO SCH (08:22)
[2021-04-10] MEDS: carbidoba-levodopa 25-100mg tablet PO SCH (08:22)
[2021-04-10] MEDS: lactobacillus rhamnosus 10,000 MMU CELLS/CAPSULE PO SCH (08:22)
[2021-04-10] MEDS: sulfamethoxazole/trimethoprim DS (800/160mg) tablet PO SCH (08:23)
[2021-04-10] MEDS: heparin, porcine 5000 units/ml vial SQ SCH (08:24)
[2021-04-10] MEDS: mycophenolate mofetil 250mg capsule PO SCH (08:24)
[2021-04-10] MEDS: lactose-reduced food (Ensure Enlive) - 237ml bottle PO SCH (08:25)
[2021-04-10] MEDS: ALPRAZolam 0.25mg tablet PO PRN (09:17)
[2021-04-10 11:00] VITALS: BP 105/61
--- NOTE | 2021-04-10 12:50 | NUR ---
Pt DC'd home with significant other. Pt alert an oriented and vitals WNL upon DC. Per Dr. Burnham; Pt is stable for DC. DC paperwork printed out and gone over with Pt. Allowed Pt to ask questions concerning DC and then answered them. No new prescriptions to call into pharmacy. Pt's belongings gathered and sent with Pt. Pt wheeled down to lobby on 15LPM high flow ID. Pt left in Private vehicle for home with significant other.
== END 2021-04-10 12:59 | disposition home or self-care (01) | DRG 309 ==
LOC: ER 15:27 → ED HOLD 23:23 → PCU 3S 04-08 02:00
PROVIDERS: ADMIT Internal Medicine; ATTEND Internal Medicine
PROC: 5A0935A Assistance with Respiratory Ventilation, Less than 24 Consecutive Hours, High Flow/Velocity Cannula (ICD-10-PCS; principal; 2021-04-08)
PROC: 5A0935A Assistance with Respiratory Ventilation, Less than 24 Consecutive Hours, High Flow/Velocity Cannula (ICD-10-PCS; 2021-04-09)
DX: I48.92 Unspecified atrial flutter (principal); Z68.1 Body mass index [BMI] 19.9 or less, adult; I48.91 Unspecified atrial fibrillation; R63.6 Underweight; J84.112 Idiopathic pulmonary fibrosis; I25.10 Atherosclerotic heart disease of native coronary artery without angina pectoris; D72.829 Elevated white blood cell count, unspecified; I95.9 Hypotension, unspecified; R04.0 Epistaxis; M81.0 Age-related osteoporosis without current pathological fracture; F41.9 Anxiety disorder, unspecified; G20 Parkinson's disease; I10 Essential (primary) hypertension; Z76.82 Awaiting organ transplant status; Z79.899 Other long term (current) drug therapy
CPT/HCPCS: 36415; 36600; 71045; 80048; 80053; 82803; 83735; 83880; 84145; 84443; 84484; 85007; 85018; 85025; 85379; 85610; 85730; 87081; 92960; 93005; 93308; 94760; 96361; 96365; 96366; 96367; 96375; 96376; 97161; 97530; 99285; 99291; 99292; G0378; J1644; J2704; J3475; J3490; J7030; J7120; J7512; J7517